=== PATIENT | female | born 1985 | race Hispanic/Latino ===

== ENCOUNTER → 2025-05-27 | Outpatient (CLI) | payer OTHER ==
--- NOTE | 2025-05-27 13:31 | HMCIMG ---
DOUBLE CONTRAST UPPER GI SERIES: CLINICAL HISTORY: History of bariatric surgery with gastric sleeve complaining of epigastric pain Finding: The study was performed using provocative maneuvers After swallowing effervescent crystal and thick barium, there is no definite intrinsic or extrinsic lesion seen in the esophagus. There is mild grade 1 esophageal reflux. Is no hiatal hernia. The stomach has a tubular contour suggesting of gastric sleeve. Distal to the gastric sleeve there is a focal area of this stenosis which is not limiting the floor of the barium into small bowel.. The rugal folds appear to be normal. The duodenal bulb, duodenal sweep, and upper jejunum appear to be normal. Fluoroscopy time: 1.1 minutes IMPRESSION: Status post gastric sleeve surgery with distal portion of the sleep there is a focal area of narrowing with no obstruction with normal transient of barium into duodenum and small bowel.. Mild grade 1 esophageal reflux with no evidence of hiatal hernia
== END | disposition home or self-care (01) ==
LOC: RAH 10:57
PROVIDERS: ATTEND Internal Medicine Gastroenterology
DX: K21.9 Gastro-esophageal reflux disease without esophagitis (principal); R10.13 Epigastric pain; Z98.84 Bariatric surgery status
CPT/HCPCS: 74240